=== PATIENT | female | born 1955 | race Caucasian/White ===

== ENCOUNTER → 2017-03-31 | Outpatient (CLI) | payer OTHER | END | disposition home or self-care (01) | LOC: RAD 08:33 | DX: M17.11 Unilateral primary osteoarthritis, right knee (principal); M19.011 Primary osteoarthritis, right shoulder | CPT/HCPCS: 73030; 73562 ==

== ENCOUNTER 2019-06-02 16:52 | Emergency (ER) | payer OTHER ==
[~2019-06-02] VITALS: Ht 157.5 cm; Wt 63.0 kg
[2019-06-02 16:55] VITALS: BP 103/63
== END 2019-06-02 22:27 | disposition left against medical advice (07) ==
LOC: ER 16:52
DX: R53.1 Weakness (principal); Z53.21 Procedure and treatment not carried out due to patient leaving prior to being seen by health care provider
CPT/HCPCS: 93005